=== PATIENT | male | born 1945 | race Hispanic/Latino ===

== ENCOUNTER → 2023-01-31 | Outpatient (CLI) | payer MEDICARE ==
[~2023-01-31] MED LIST: GADOBENATE DIMEGLUMINE 1 ML IV ONE
[2023-01-31 09:36] LABS: CREATININE, SERUM 0.95 mg/dL (0.72-1.25)
== END ==
LOC: NM 07:54
PROVIDERS: ATTEND Urology
DX: R97.20 Elevated prostate specific antigen [PSA] (principal)
CPT/HCPCS: 36415; 72197; 78306; 82565; 84520; A9503; A9577

== ENCOUNTER 2023-12-24 11:18 | Emergency (ER) | payer MEDICARE, OTHER ==
[~2023-12-24] VITALS: Ht 172.7 cm; Wt 81.6 kg
[2023-12-24 11:30] VITALS: O2SAT 95
[2023-12-24] MEDS: ACETAMINOPHEN 325 MG TAB PO ONE (12:15)
== END 2023-12-24 14:08 | disposition home or self-care (01) ==
LOC: ER 11:31
DX: S60.211A Contusion of right wrist, initial encounter (principal); S20.211A Contusion of right front wall of thorax, initial encounter; W18.39XA Other fall on same level, initial encounter; Y93.01 Activity, walking, marching and hiking; Y92.512 Supermarket, store or market as the place of occurrence of the external cause; I10 Essential (primary) hypertension; E78.5 Hyperlipidemia, unspecified; F32.A Depression, unspecified
CPT/HCPCS: 71101; 99284